=== PATIENT | male | born 2000 | race Caucasian/White ===

== ENCOUNTER 2025-03-03 00:38 | Emergency (ER) | payer SELFPAY ==
--- OUTSIDE RECORDS SUMMARY | 2016-02-21 04:38 | XMS_ITS | Continuity of Care Document ---
[facility] Organization [facility] Address [address] [place] [address] Phone Care Team Providers Care Manager Of Environmental Services Name Role Phone Unavailable Unavailable Unavailable Advance Directives Directive Yes / No Effective Date File Name No Information Encounters Encounter Description Practice Location Reason(s) For Visit Diagnoses Date Provider Providers Copied on Encounter [facility], [address], [place], [address], [place] tel:[phone] [facility] No Information Sep-2 6-201 6 No Information Family History Family Member Type Diagnosis Age At Onset No Information Payers Payer name Insurance type Covered alliance party ID Authoriza tion(s) [place] [employer] [place] [id number] Social History Type Description Quantity Date Captured Comments Sex Male Smoking Status No Information Chief Complaint And Reason For Visit No Information History Of Present Illness Encounter Date Complaint History Of Prese nt Illness No Information Instructions Date Instruction Additional Infor mation No Information Assessments Type Assessment Date No Information
[2025-03-03 00:41] VITALS: BP 140/85; PULSE 122; RESP 18; TEMP 37; O2SAT 100; BMI 52.6
--- NOTE | 2025-03-03 00:43 | ECG_ITS ---
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 Measurements Intervals Buckner Rate: 124 P: 38 IA: 147 QRS: 11 QRSD: 88 T: 55 QT: 285 QTc: 410 Interpretive Statements SINUS TACHYCARDIA ABNORMAL RHYTHM ECG No previous ECG available for comparison Electronically Signed On 03-03-2025 23:50:41 CDT by Maged Enriquez M.D. [email or web address] [id number]
--- OUTSIDE RECORDS SUMMARY | 2025-03-03 00:49 | XMS_ITS | Encounter Summary ---
Author Organization [facility] Address [address] [place] [address] Care Team Providers Care Supervisor Cartography Name Role Phone Tamela Montenegro DO Primary Care Provider [phone] Encounter Details Date Type Department Care Team (Late st Contact Info) Description 08/23/2017 Ancillary Orders [facility] - [facility] [address] [place] [address] [facility], External Provider [address] [place] [address] Pain Social History Tobacco Use Types Packs/Day Years Used Date Smoking Tobacco: Never Smokeless Tobacco: Never Alcohol Use Standard Drinks/Week Comments No 0 (1 standard drink = 0.6 oz pur e alcohol) Sex and Gender Information Value Date Recorded Sex Assigned at Not on file Legal Sex Male 10:49 AM CDT Gender Identity Not on file Sexual Orientation Not on file documented as of this encounter Plan of Treatment Not on file documented as of this encounter Results * MRI PRIOR STUDY (08/16/2017 9:00 AM CDT) Narrative 08/23/2017 10:23 AM CDT This exam was auto finalized to allow images to be scanned to PACS. us External Provider Juwan MR ORDERABLES Final Resu lt documented in this encounter Visit Diagnoses Diagnosis Pain Generalized pain Pain Generalized pain documented in this encounter Care Teams Supervisor Cartography Relationship Specialty Start Date End Date Tamela Montenegro DO [address] [place] [address] PCP - General Family Practice 01/16/17 documented as of this encounter
--- OUTSIDE RECORDS SUMMARY | 2025-03-03 00:49 | XMS_ITS | Clinical Summary ---
Author Organization [facility] Address [address] Anderson: Epic Prelude ADT [place]ES [address] Care Team Providers Care Automation Qtp Tester Name Role Phone Tamela Montenegro DO Primary Care Provider Allergies No known active allergies Medications clotrimazole (LOTRIMIN) 1 % CreamIndication s:Recurrent tinea pedis Apply thin layer of cream to affected areas twice daily for 4 weeks. 168 Gram 0 04/10/2019 Active Active Problems Problem Noted Date Diagnosed Date Tear of lateral meniscus of left knee 08/23/2017 Morbid obesity due to excess calories 01/29/2017 Immunizations Immunization Administration Dates Next Due (ACTHIB/HIBERIX)(2 MOS-5 YRS /6 WKS-4 YRS) HAEMOPHILUS INFLUENZAE TYPE B VACCINE (HIB), PRP-T CONJUGATE, 4 DOSE, 0.5 ML IM 09/18/2003,03/26/2003,2002,08/27 (ADACEL/BOOSTRIX)(10 YR UP) TDAP VACCINE, 0.5ML, IM 12/09/2015 (INFANRIX)(6 WKS-6 YRS) DIPT HERIA, TETANUS TOXOIDS, AND ACCELLULAR PERTUSSIS VACCINE (DTAP), 0.5 ML IM 2002,2002 (IPOL)(6 WKS AND UP) POLIOVI TARA VACCINE, INACTIVATED (IPV), 3 DOSE, SUBCUT OR IM 2002,2002 (KINRIX/QUADRACEL)(4 - 6 YRS ) DIPHTHERIA, TETANUS TOXOIDS AND ACELLULAR PERTUSSIS VACCINE, POLIO, INACTIVATED (DTAP-IPV) (PF) IM 01/19/2010 (M-M-R II/PRIORIX)(12 MO UP) MEASLES, MUMPS AND RUBELLA VIRUS VACCINE, 0.5 ML IM/SUBCUT 01/19/2010,09/18/2003 (MENACTRA)(9 MO-55 YR) MENIN GOCOCCAL POLYSACCHARIDE A, C, Y AND W-135 DIPTHERIA TOXOID CONJUGATE VACCINE, (PF), 0.5ML, IM 02/12/2020 (PEDIARIX)(6 WKS-6 YRS) DIPT HERIA, TETANUS TOXOIDS, ACELLULAR PERTUSSIS, HEPATITIS B, AND INACTIVATED POLIOVIRUS VACCINE (BMYP-RIGC-OYJ), 0.5ML, IM 03/26/2003 (RECOMBIVAX HB/ENGERIX-B)(0- 19 YRS) HEPATITIS B VACCINE 5 MCG/0.5 ML OR 10 MCG/0.5 ML PED OR ADOL 3 DOSE (PF), IM 2002,2002 (VARIVAX)(12 MOS UP)VARICELL A VIRUS VACCINE (PF) 0.5 ML, SUB CUT 01/19/2010,02/22/2006 DTP IM 04/04/2005 Influenza Vaccine Quad Split 3+ Yrs Im 9 Meningococcal ACWY Vaccine, Unspecified Formulation 12/09/2015 Pneumococcal 7-valent conjug ate vaccine IM 03/26/2003,2002,2002 Family History Medical History Relation Name Comments Hypertension Mother Relation Name Status Comments Mother Social History Tobacco Use Types Packs/Day Years Used Date Smoking Tobacco: Never Smokeless Tobacco: Never Alcohol Use Standard Drinks/Week Comments No 0 (1 standard drink = 0.6 oz pur e alcohol) Sex and Gender Information Value Date Recorded Sex Assigned at Not on file 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 Gender Identity Not on file Sexual Orientation Not on file Last Filed Vital Signs Vital Sign Reading Time Taken Comments Blood Pressure 128/80 02/12/2020 2:28 PM CDT Pulse 113 02/12/2020 2:28 PM CDT Temperature 36.7 C (98 F) 02/12/2020 2:28 PM CDT Respiratory Rate 20 02/12/2020 2:28 PM CDT Oxygen Saturation - - Inhaled Oxygen Concentration - - Weight 201.4 kg (444 lb) 02/12/2020 2:28 PM CDT Height 179.1 cm (5' 10.5 ) 02/12/2020 2:28 PM CD T Body Mass Index 62.81 02/12/2020 2:28 PM CDT Plan of Treatment Health Maintenance Due Date Last Done Comments HPV VACCINES (1 - Male 3-dos e series) 2017 Preventative Visit- Commercial 05/28/2024 INFLUENZA VACCINE (#1) 2024 04/10/2019, 2017 DTAP/TDAP/TD VACCINES (6 - T d or Tdap) 12/08/2025 12/09/2015, 01/19/2010, 03/26/2003, Additional history exists HEPATITIS B VACCINES Completed 03/26/2003, 2002, 2002 Insurance * Guarantor: DESEAN LONG Account Type Relation to Patient Date of Phone Billing Address Personal/Family [phone] [place] [address] RX [employer] Medicaid Care Teams Automation Qtp Tester Relationship Specialty Start Date End Date Tamela Montenegro DO [address] [place] [address] PCP - General Family Practice 01/16/17
--- OUTSIDE RECORDS SUMMARY | 2025-03-03 00:49 | XMS_ITS | Clinical Summary ---
Author Organization [facility] Address [address] [place] [address] Care Team Providers Care Batch Mixer Operator Name Role Phone Tamela Montenegro DO Primary Care Provider Allergies No known active allergies Medications ibuprofen (MOTRIN) 800 mg tablet Take 1 Tablet (800 mg) by mouth every 6 hours as needed for Pain, Mild. 40 Tablet 09/10/2017 12:39 PM CDT 09/10/2017 Active clotrimazole (LOTRIMIN) 1 % CreamIndication s:Recurrent tinea pedis Apply thin layer of cream to affected areas twice daily for 4 weeks. 168 Gram 04/10/2019 Active Active Problems Problem Noted Date [...] PERTUSSIS, HEPATITIS B, AND INACTIVATED POLIOVIRUS VACCINE (JKNJ-VBIV-MNI), 0.5ML, IM 03/26/2003 (RECOMBIVAX HB/ENGERIX-B)(0- 19 YRS) [...] 20 02/12/2020 2:28 PM CDT Oxygen Saturation 97% 02/12/2020 2:28 PM CDT Inhaled Oxygen Concentration - - Weight 201.4 kg (444 lb) 02/12/2020 2:28 PM CDT Height 179.1 cm (5' 10.5 ) 02/12/2020 2:28 PM CD T Body Mass Index 62.81 02/12/2020 2:28 PM CDT Plan of Treatment Health Maintenance Due Date Last Done Comments HPV VACCINES (1 - Male 3-dos e series) 2017 Preventative Visit- Commercial 05/28/2024 02/12/2020 , 01/16/2017 INFLUENZA VACCINE (#1) 2024 04/10/2019, 2017 DTAP/TDAP/TD VACCINES (6 - T d or Tdap) 12/08/2025 12/09/2015, 01/19/2010, 03/26/2003, Additional history exists HEPATITIS B VACCINES Completed 03/26/2003, 2002, 2002 Insurance RX INFOCROSS[employer] Medicaid [facility] [place] Advance Directives For more information, please contact: [phone] * Full Code (Latest Code Status on File) Date Activated Date Inactivated Comments 09/10/2017 8:46 AM 09/10/2017 2:56 PM Care Teams Batch Mixer Operator Relationship Specialty Start Date End Date Tamela Montenegro DO [address] [place] [address] PCP - General Family Practice 01/16/17
--- NOTE | 2025-03-03 00:55 | XRR_ITS ---
PROCEDURE INFORMATION: Exam: XR Chest Exam date and time: 03/03/2025 12:57 AM Age: 24 years old Clinical indication: Pain; Chest pressure and left-sided; Additional info: Chest pain, tachycardia TECHNIQUE: Imaging protocol: Radiologic exam of the chest. Views: 1 view. COMPARISON: No relevant prior studies available. FINDINGS: Lungs: Unremarkable. No consolidation. Pleural spaces: Unremarkable. No pleural effusion. No pneumothorax. Heart/Mediastinum: Unremarkable. No cardiomegaly. Bones/joints: Unremarkable. XR/XR chest 1V portable [id number] IMPRESSION: No acute findings.
--- NOTE | 2025-03-03 00:56 | ED_ITS ---
HPI - Chest Pain 2 General: Chief Complaint: Chest Pain Stated Complaint: Chest pain tight arm feels heavy Time Seen by Provider: 03/03/25 00:40 History of Present Illness: 24-year-old male no known medical histor y other than previously being told he was prediabetic but not on medications for this, currently has a child in the NICU and that is causing a lot of stress, reports onset of chest pressure rating down the left arm starting about 30 minutes ago while driving, nonexertional, no shortness of breath, no fevers or cough, no leg swelling or calf tenderness, no recent prolonged travel or immobilization, no personal or family history of DVT/PE, no exogenous hormone use, no smoking, no drinking or drug use. Related Data Home Medications ?Medication ?Instructions ?Recorded ?Confirmed No Known Home Medications 09/18/2208/27 Allergies Allergy/AdvReac Type Severity Reaction Status Date / Time No Known Allergies Allergy Verified 03/03/25 00:47 Physical Exam 2 Narrative: EXAM NARRATIVE: Gen: A&Ox4, no acute distress, nontoxic appearing, obese, nondiaphoretic HEENT: Normocephalic, atraumatic, no scleral icterus, external ears normal, moist mucous membranes Neck: Supple, full range of motion, no observable masses Lungs: No Respiratory distress, Lungs clear to auscultation bilaterally no rales, rhonchi, wheezing CV: Tachycardic, regular rhythm, narrow complex on cardiac telemetry, no murmur, no pitting edema to lower extremities bilaterally Abdomen: Soft, nondistended, nontender to palpation MSK: No joint swelling, FROM all 4 extremities Skin: No rashes, petechiae, lesions. Normal color per patient. Neuro: Alert and oriented, no slurred speech, sensation and strength grossly intact all 4 extremities Psych: Appropriate for situation, appears anxious Course 2 Vital Signs: Vital signs: Vital Signs Temperature 98.6 F 03/03/25 00:41 Pulse Rate 122 H 03/03/25 00:41 Respiratory Rate 18 03/03/25 00:41 Blood Pressure 140/85 03/03/25 00:41 Pulse Oximetry 100 03/03/25 00:41 Oxygen Delivery Me thod Room Air 03/03/25 00:41 MDM - Chest Pain Medical Decision Making 24-year-old male history of obesity, otherwise prediabetes but no recent medical evaluation, presenting to the emergency department with onset x 30 minutes of chest pain, patient tachycardic which appears to be very volatile while in the ER ranging from 120s to 150s, there appears to be at least a component of anxiety however given his unclear medical history will obtain full medical examination to assess for PE, rule out ACS/pericarditis/myocarditis, trial of fluids NSAIDs and benzodiazepine, reassess for disposition. Lab Data Labs showing no leukocytosis or anemia, normal troponin, negative D-dimer, normal electrolytes and normal kidney function, normal LFTs 03/03/25 01:17 03/03/25 01:17 Radiology Impressions Chest X-Ray 03/03/25 00:55 IMPRESSION: No acute findings. Laboratory Results WBC 11.32 10^3/uL (3.29-11.43) 03/03/25 01:17 RBC 4.81 10^6/uL (3.85-5.65) 03/03/25 01:17 Hgb 14.60 g/dL (11.27-16.99) 03/03/25 01:17 Hct 43.6 % (37-53) 03/03/25 01:17 MCV 90.6 fl (82-101) 03/03/25 01:17 MCH 30.4 pg (27-33) 03/03/25 01:17 MCHC 33.5 g/dL (30-55) 03/03/25 01:17 RDW 13.5 % (12.1-15.1) 03/03/25 01:17 Plt Count 242 10^3/cmm (157-399) 03/03/25 01:17 MPV 9.7 fL (7.4-10.4) 03/03/25 01:17 Neut % (Auto) 56.1 % 03/03/25 01:17 Lymph % (Auto) 35.3 % 03/03/25 01:17 [place] % (Auto) 7.5 % 03/03/25 01:17 Eos % (Auto) 0.4 % 03/03/25 01:17 Baso % (Auto) 0.3 % 03/03/25 01:17 Neut # (Auto) 6.35 10^3/uL (1.8-7.7) 03/03/25 01:17 Lymph # (Auto) 4.0 10^3/uL (0.8-4.8) 03/03/25 01:17 [place] # (Auto) 0.9 10^3/uL (0.2-0.9) 03/03/25 01:17 Eos # (Auto) 0.1 10^3/uL (0.0-0.8) 03/03/25 01:17 Baso # (Auto) 0.0 10^3/uL (0.0-0.1) 03/03/25 01:17 Nucleated RBC % (auto) 0 % 03/03/25 01:17 Nucleated RBCs # 0.0 /100WBC 03/03/25 01:17 D-Dimer <= 0.27 ug/mLFEU (0-0.59) 03/03/25 01:17 Sodium 141 mmol/L (136-145) 03/03/25 01:17 Potassium 4.2 mmol/L (3.5-5.1) 03/03/25 01:17 Chloride 104 mmol/L (98-107) 03/03/25 01:17 Carbon Dioxide 25 mmol/L (22-29) 03/03/25 01:17 Anion Gap 16.2 (5-19) 03/03/25 01:17 BUN 16 mg/dL (6-20) 03/03/25 01:17 Creatinine 1.1 mg/dL (0.7-1.2) 03/03/25 01:17 GFR Calculation 83.7 mL/min (90-130) L 03/03/25 01:17 Glucose 106 mg/dL (65-115) 03/03/25 01:17 Calculated Osmolality 294 mOsm/kg (285-295) 03/03/25 01:17 Calcium 9.2 mg/dL (8.5-10.5) 03/03/25 01:17 Total Bilirubin 0.4 mg/dL (0.15-1.2) 03/03/25 01:17 AST 26 U/L (0-40) 03/03/25 01:17 ALT 32 U/L (0-41) 03/03/25 01:17 Alkaline Phosphatase 87 U/L (40-130) 03/03/25 01:17 Troponin T Baseline < 6 ng/L (0-15) 03/03/25 01:17 Total Protein 7.4 g/dL (6.6-8.7) 03/03/25 01:17 Albumin 4.2 g/dL (3.5-5.2) 03/03/25 01:17 Globulin 3.2 g/dL (1.3-4.6) 03/03/25 01:17 Lipase 18 U/L (13-60) 03/03/25 01:17 All radiology interpretation(s) finalized by discharge ED provider radiology interpretation(s): Chest x-ray negative for acute pathology no pneumonia or pneumothorax, no pulmonary edema EKG Data EKG 1: I personally reviewed and interpreted this EKG as follows: EKG interpretation date: 03/03/25 EKG interpretation time: 00:55 Prior EKG tracings: not available for review Interpretation: Sinus tachycardia 124 bpm, no STEMI, no ectopy, QTc 359 ms, normal axis Discharge Plan Discharge Patient Disposition: Home Clinical Impression: Atypical chest pain Condition: Stable Prescriptions: No Action No Known Home Medications Discharge Orders: Discharge ED (Routine); Ordered 03/03/25 Ordered By: Geo Houston Referrals: Geo Houston MD [Emergency Provider, Emergency Medicine] - 1-3 days Referral Note: NEEDED IF SYMPTOMS WORSEN Patient Instructions: Patient Portal & Onur Instructions, Chest Pain (ED) Print Language: Mauritian Coding Level of Care Code ED Rail Signal Worker for Chg Fwd Heart Score HEART Score Components History: Slightly Suspicous EKG: Normal Age: Less than 45 yrs Risk Factors: 1 or 2 Risk Factors Troponin: Baseline Trop <16 ng/L HEART Score RESULT HEART Score: 1
[2025-03-03 01:27] LABS: Hematocrit 43.6 % (37-53); Hemoglobin 14.60 g/dL (11.27-16.99); Mean Corpuscular HGB Conc 33.5 g/dL (30-55); Mean Corpuscular Hemoglobin 30.4 pg (27-33); Mean Corpuscular Volume 90.6 fl (82-101); Nucleated Red Blood Cells % 0 %; Platelet Count 242 10^3/cmm (157-399); Red Blood Count 4.81 10^6/uL (3.85-5.65); White Blood Count 11.32 10^3/uL (3.29-11.43)
[2025-03-03 01:30] VITALS: BP 137/104; PULSE 113; RESP 14; O2SAT 96
[2025-03-03] MEDS: LORazepam 1 MG/0.5 ML injection IVP (01:34)
[2025-03-03 01:45] LABS: Troponin(5th) Baseline < 6 ng/L (0-15)
[2025-03-03 01:52] LABS: Alanine Aminotransferase 32 U/L (0-41); Albumin Level 4.2 g/dL (3.5-5.2); Alkaline Phosphatase 87 U/L (40-130); Aspartate Amino Transferase 26 U/L (0-40); Blood Urea Nitrogen 16 mg/dL (6-20); Calcium 9.2 mg/dL (8.5-10.5); Carbon Dioxide 25 mmol/L (22-29); Chloride 104 mmol/L (98-107); Creatinine Clr Calc Pharmacy 174.2550; Globulin 3.2 g/dL (1.3-4.6); Glucose 106 mg/dL (65-115); Lipase 18 U/L (13-60); Osmolality Calculated 294 mOsm/kg (285-295); Sodium 141 mmol/L (136-145); Total Protein 7.4 g/dL (6.6-8.7)
[2025-03-03 02:00] VITALS: BP 151/104; PULSE 108; RESP 22; O2SAT 97
[2025-03-03 02:02] LABS: Anion Gap 16.2 (5-19); Potassium 4.2 mmol/L (3.5-5.1)
[2025-03-03 02:43] VITALS: BP 145/92; PULSE 81; RESP 16; O2SAT 100
== END 2025-03-03 02:40 | disposition home or self-care (01) ==
PROVIDERS: Emergency Provider Student in an Organized Health Care Education/Training Program
DX: R07.89 Other chest pain (principal); R00.0 Tachycardia, unspecified
CPT/HCPCS: 71045; 80053; 83690; 84484; 85025; 85378; 93005; 96374; 96375; 99285; J1885; J2060; J7030; J9999